=== PATIENT | female | born 1940 | race Caucasian/White ===

== ENCOUNTER 2017-10-03 06:50 | Outpatient (CLI) | payer OTHER ==
[~2017-10-03 06:50] MED LIST: CLEOCIN HCL300 MG PO; DOXAZOSIN MESYLA4 MG; KENALOG ORABASE TOP; LEVOXYL100 MCG; PANADOL MAXIMU500 MG PO; PENTOXIFYLLINE400 MG; ULTRAM50 MG PO; ZOCOR20 MG
== END 2017-10-03 06:56 | disposition home or self-care (01) ==
LOC: LAB 06:50
DX: K29.40 Chronic atrophic gastritis without bleeding (principal); D51.8 Other vitamin B12 deficiency anemias; E03.8 Other specified hypothyroidism; E11.65 Type 2 diabetes mellitus with hyperglycemia; I10 Essential (primary) hypertension; D51.0 Vitamin B12 deficiency anemia due to intrinsic factor deficiency; D51.1 Vitamin B12 deficiency anemia due to selective vitamin B12 malabsorption with proteinuria; E06.3 Autoimmune thyroiditis; D51.3 Other dietary vitamin B12 deficiency anemia; J45.998 Other asthma; C50.412 Malignant neoplasm of upper-outer quadrant of left female breast; Z85.3 Personal history of malignant neoplasm of breast; D50.8 Other iron deficiency anemias; R97.0 Elevated carcinoembryonic antigen [CEA]; R97.8 Other abnormal tumor markers

== ENCOUNTER 2018-01-09 06:29 | Outpatient (CLI) | payer OTHER | END 2018-01-09 06:30 | disposition home or self-care (01) | LOC: LAB 06:29 | DX: D51.0 Vitamin B12 deficiency anemia due to intrinsic factor deficiency (principal); D51.1 Vitamin B12 deficiency anemia due to selective vitamin B12 malabsorption with proteinuria; E06.3 Autoimmune thyroiditis; J45.998 Other asthma; E03.8 Other specified hypothyroidism; I10 Essential (primary) hypertension; E08.65 Diabetes mellitus due to underlying condition with hyperglycemia; C50.412 Malignant neoplasm of upper-outer quadrant of left female breast; Z85.3 Personal history of malignant neoplasm of breast; D50.8 Other iron deficiency anemias; K90.89 Other intestinal malabsorption; R97.0 Elevated carcinoembryonic antigen [CEA]; R97.8 Other abnormal tumor markers ==

== ENCOUNTER 2018-01-09 07:07 | Outpatient (CLI) | payer OTHER | END 2018-01-09 07:10 | disposition home or self-care (01) | LOC: SONOGRAMA 07:07 → MAMO-SONO 07:45 | DX: K29.40 Chronic atrophic gastritis without bleeding (principal); D51.0 Vitamin B12 deficiency anemia due to intrinsic factor deficiency; D51.1 Vitamin B12 deficiency anemia due to selective vitamin B12 malabsorption with proteinuria; E06.3 Autoimmune thyroiditis; D51.3 Other dietary vitamin B12 deficiency anemia; J45.998 Other asthma; E03.8 Other specified hypothyroidism; I10 Essential (primary) hypertension; E08.65 Diabetes mellitus due to underlying condition with hyperglycemia; C50.412 Malignant neoplasm of upper-outer quadrant of left female breast; Z85.3 Personal history of malignant neoplasm of breast ==

== ENCOUNTER 2018-02-13 08:18 | Outpatient (CLI) | payer OTHER | END 2018-02-13 08:32 | disposition home or self-care (01) | LOC: NUCLEAR 08:18 | DX: D51.0 Vitamin B12 deficiency anemia due to intrinsic factor deficiency (principal); D51.1 Vitamin B12 deficiency anemia due to selective vitamin B12 malabsorption with proteinuria; E06.3 Autoimmune thyroiditis; D51.3 Other dietary vitamin B12 deficiency anemia; J45.998 Other asthma; E03.8 Other specified hypothyroidism; E08.65 Diabetes mellitus due to underlying condition with hyperglycemia; C50.412 Malignant neoplasm of upper-outer quadrant of left female breast; Z85.3 Personal history of malignant neoplasm of breast; K29.40 Chronic atrophic gastritis without bleeding; R97.0 Elevated carcinoembryonic antigen [CEA] | CPT/HCPCS: 78816; A9552 ==

== ENCOUNTER → 2018-04-21 09:42 | Outpatient (CLI) | payer OTHER | END | disposition home or self-care (01) | LOC: LAB 04-20 18:21 | DX: E03.8 Other specified hypothyroidism (principal); M83.9 Adult osteomalacia, unspecified; E73.8 Other lactose intolerance; I10 Essential (primary) hypertension ==

== ENCOUNTER 2018-04-25 07:14 | Outpatient (CLI) | payer OTHER | END 2018-04-25 13:51 | disposition home or self-care (01) | LOC: LAB 07:14 | DX: E55.9 Vitamin D deficiency, unspecified (principal); E11.9 Type 2 diabetes mellitus without complications; N39.0 Urinary tract infection, site not specified; R82.79 Other abnormal findings on microbiological examination of urine ==

== ENCOUNTER 2018-08-10 06:35 | Outpatient (CLI) | payer OTHER | END 2018-08-10 15:00 | disposition home or self-care (01) | LOC: LAB 06:35 | DX: C50.412 Malignant neoplasm of upper-outer quadrant of left female breast (principal); R97.0 Elevated carcinoembryonic antigen [CEA]; D51.0 Vitamin B12 deficiency anemia due to intrinsic factor deficiency; E06.3 Autoimmune thyroiditis; D51.3 Other dietary vitamin B12 deficiency anemia; J45.998 Other asthma; E03.8 Other specified hypothyroidism; I10 Essential (primary) hypertension; E08.65 Diabetes mellitus due to underlying condition with hyperglycemia; Z85.3 Personal history of malignant neoplasm of breast; K29.40 Chronic atrophic gastritis without bleeding; D50.8 Other iron deficiency anemias; D51.8 Other vitamin B12 deficiency anemias; K90.89 Other intestinal malabsorption; R97.8 Other abnormal tumor markers ==

== ENCOUNTER → 2018-08-20 | Outpatient (CLI) | payer OTHER | END | disposition home or self-care (01) | LOC: NUCLEAR 13:57 | DX: M81.0 Age-related osteoporosis without current pathological fracture (principal) ==

== ENCOUNTER 2018-10-05 06:22 | Outpatient (CLI) | payer OTHER | END 2018-10-05 06:30 | disposition home or self-care (01) | LOC: LAB 06:22 | DX: I10 Essential (primary) hypertension (principal); E03.8 Other specified hypothyroidism; E78.2 Mixed hyperlipidemia; E73.8 Other lactose intolerance ==

== ENCOUNTER 2018-11-16 06:15 | Outpatient (CLI) | payer OTHER | END 2018-11-16 15:00 | disposition home or self-care (01) | LOC: LAB 06:15 | DX: C50.412 Malignant neoplasm of upper-outer quadrant of left female breast (principal); R97.0 Elevated carcinoembryonic antigen [CEA]; D51.0 Vitamin B12 deficiency anemia due to intrinsic factor deficiency; D51.1 Vitamin B12 deficiency anemia due to selective vitamin B12 malabsorption with proteinuria; E06.3 Autoimmune thyroiditis; D51.3 Other dietary vitamin B12 deficiency anemia; J45.998 Other asthma; E03.8 Other specified hypothyroidism; I10 Essential (primary) hypertension; E08.65 Diabetes mellitus due to underlying condition with hyperglycemia; Z85.3 Personal history of malignant neoplasm of breast; K29.40 Chronic atrophic gastritis without bleeding; D50.8 Other iron deficiency anemias; D51.8 Other vitamin B12 deficiency anemias; R97.8 Other abnormal tumor markers ==

== ENCOUNTER 2019-01-25 07:39 | Outpatient (CLI) | payer OTHER | END 2019-01-25 07:46 | disposition home or self-care (01) | LOC: NUCLEAR 07:39 | DX: C50.412 Malignant neoplasm of upper-outer quadrant of left female breast (principal); R97.0 Elevated carcinoembryonic antigen [CEA]; D51.0 Vitamin B12 deficiency anemia due to intrinsic factor deficiency; D51.1 Vitamin B12 deficiency anemia due to selective vitamin B12 malabsorption with proteinuria | CPT/HCPCS: 78816; A9552 ==

== ENCOUNTER 2019-02-10 06:40 | Emergency (ER) | payer OTHER ==
[~2019-02-10] VITALS: Ht 149.9 cm; Wt 72.6 kg
== END 2019-02-10 16:46 | disposition home or self-care (01) ==
LOC: ER 06:40
DX: J45.901 Unspecified asthma with (acute) exacerbation (principal)

== ENCOUNTER 2019-07-14 20:04 | Inpatient (IN) | payer OTHER ==
[~2019-07-14] VITALS: Ht 30.5 cm; Wt 4.0 kg
[2019-07-21] MEDS ORDERED: LORATADINE10 MG PO (13:28)
[2019-07-21] MEDS ORDERED: MUCINEX600 MG PO (13:29)
[2019-07-21] MEDS ORDERED: BENZONATATE200 M1 PO (13:29)
[2019-07-21] MEDS ORDERED: MEDROLPACK PO (13:30)
[2019-07-21] MEDS ORDERED: IPRAT-ALBUT 0.5-3 ML IH (13:30)
== END 2019-07-21 14:03 | disposition home or self-care (01) | DRG 190 ==
LOC: ER 20:04 → MEDJ 07-15 09:53
PROVIDERS: ADMIT Internal Medicine
PROC: BB24ZZZ Computerized Tomography (CT Scan) of Bilateral Lungs (ICD-10-PCS; principal; 2019-07-15)
PROC: 4A033R1 Measurement of Arterial Saturation, Peripheral, Percutaneous Approach (ICD-10-PCS; 2019-07-15)
PROC: 3E0F7GC Introduction of Other Therapeutic Substance into Respiratory Tract, Via Natural or Artificial Opening (ICD-10-PCS; 2019-07-16)
DX: J44.1 Chronic obstructive pulmonary disease with (acute) exacerbation (principal); J18.1 Lobar pneumonia, unspecified organism; J80 Acute respiratory distress syndrome; J45.41 Moderate persistent asthma with (acute) exacerbation; J98.11 Atelectasis; E03.8 Other specified hypothyroidism; E11.9 Type 2 diabetes mellitus without complications; I10 Essential (primary) hypertension; Z79.4 Long term (current) use of insulin

== ENCOUNTER → 2019-08-07 08:18 | Outpatient (CLI) | payer OTHER ==
[~2019-08-07 08:18] MED LIST changes: +BENZONATATE200 M1 PO; +IPRAT-ALBUT 0.5-3 ML IH; +LORATADINE10 MG PO; +MEDROLPACK PO; +MUCINEX600 MG PO
== END | disposition home or self-care (01) ==
LOC: LAB 08:18
DX: E78.2 Mixed hyperlipidemia (principal); E03.8 Other specified hypothyroidism; I10 Essential (primary) hypertension; E73.8 Other lactose intolerance; E11.9 Type 2 diabetes mellitus without complications

== ENCOUNTER → 2019-09-08 07:15 | Outpatient (CLI) | payer OTHER | END | disposition home or self-care (01) | LOC: LAB 07:15 | DX: D50.8 Other iron deficiency anemias (principal); C50.412 Malignant neoplasm of upper-outer quadrant of left female breast; D63.1 Anemia in chronic kidney disease; N18.3 Chronic kidney disease, stage 3 (moderate); R97.0 Elevated carcinoembryonic antigen [CEA]; D51.0 Vitamin B12 deficiency anemia due to intrinsic factor deficiency; D51.1 Vitamin B12 deficiency anemia due to selective vitamin B12 malabsorption with proteinuria; E06.3 Autoimmune thyroiditis; D51.3 Other dietary vitamin B12 deficiency anemia; J45.998 Other asthma; E03.8 Other specified hypothyroidism; E08.65 Diabetes mellitus due to underlying condition with hyperglycemia; Z85.3 Personal history of malignant neoplasm of breast; K29.40 Chronic atrophic gastritis without bleeding; D51.8 Other vitamin B12 deficiency anemias; E55.9 Vitamin D deficiency, unspecified ==

== ENCOUNTER → 2019-09-09 07:05 | Outpatient (CLI) | payer OTHER | END | disposition home or self-care (01) | LOC: LAB 07:05 | DX: D50.8 Other iron deficiency anemias (principal); C50.412 Malignant neoplasm of upper-outer quadrant of left female breast; D63.1 Anemia in chronic kidney disease; N18.3 Chronic kidney disease, stage 3 (moderate); R97.0 Elevated carcinoembryonic antigen [CEA]; D51.0 Vitamin B12 deficiency anemia due to intrinsic factor deficiency; D51.1 Vitamin B12 deficiency anemia due to selective vitamin B12 malabsorption with proteinuria; J45.998 Other asthma; E03.8 Other specified hypothyroidism; E08.65 Diabetes mellitus due to underlying condition with hyperglycemia; Z85.3 Personal history of malignant neoplasm of breast; K29.40 Chronic atrophic gastritis without bleeding; D51.8 Other vitamin B12 deficiency anemias; E55.9 Vitamin D deficiency, unspecified; K90.89 Other intestinal malabsorption; R19.5 Other fecal abnormalities; R97.8 Other abnormal tumor markers ==

== ENCOUNTER 2020-09-08 06:31 | Outpatient (CLI) | payer OTHER | END 2020-09-08 06:39 | disposition home or self-care (01) | LOC: LAB 06:31 | PROVIDERS: ATTEND Internal Medicine Endocrinology, Diabetes & Metabolism | DX: E03.8 Other specified hypothyroidism (principal); E73.8 Other lactose intolerance; E78.2 Mixed hyperlipidemia; I10 Essential (primary) hypertension; M83.8 Other adult osteomalacia ==

== ENCOUNTER 2020-12-06 11:53 | Outpatient (CLI) | payer OTHER | END 2020-12-06 12:07 | disposition home or self-care (01) | LOC: NUCLEAR 11:53 | PROVIDERS: ATTEND General Practice | DX: M81.0 Age-related osteoporosis without current pathological fracture (principal) ==

== ENCOUNTER 2021-04-21 08:52 | Emergency (ER) | payer OTHER ==
[~2021-04-21] VITALS: Ht 149.9 cm; Wt 90.3 kg
[2021-04-21] MEDS ORDERED: NEURONTIN300 MG (09:03)
[2021-04-21] MEDS ORDERED: SYNTHROID112 MCG (09:04)
[2021-04-21] MEDS ORDERED: SINGULAIR 10MG10 MG (09:04)
[2021-04-21] MEDS ORDERED: MYSOLINE250 MG (09:04)
[2021-04-21] MEDS ORDERED: CARDURA XL4 MG (09:04)
[2021-04-21] MEDS ORDERED: ZESTRIL5 MG (09:04)
[2021-04-21] MEDS ORDERED: SIMVASTATIN40 MG (09:04)
[2021-04-21] MEDS ORDERED: PENTOXIFYLLINE400 MG (09:05)
[2021-04-21] MEDS ORDERED: SURFAK240 M1 PO (14:44)
== END 2021-04-21 14:55 | disposition home or self-care (01) ==
LOC: ER 08:52
DX: K62.5 Hemorrhage of anus and rectum (principal)

== ENCOUNTER 2021-05-29 15:20 | Outpatient (CLI) | payer OTHER ==
[~2021-05-29 15:20] MED LIST changes: +CARDURA XL4 MG; +MYSOLINE250 MG; +NEURONTIN300 MG; +SIMVASTATIN40 MG; +SINGULAIR 10MG10 MG; +SURFAK240 M1 PO; +SYNTHROID112 MCG; +ZESTRIL5 MG
== END 2021-05-29 15:45 | disposition home or self-care (01) ==
LOC: PPH VACUNA 15:20
PROVIDERS: ATTEND Emergency Medicine Pediatric Emergency Medicine
DX: Z23 Encounter for immunization (principal)

== ENCOUNTER 2021-06-22 08:30 | Outpatient (CLI) | payer OTHER | END 2021-06-22 08:37 | disposition home or self-care (01) | LOC: TOM 08:30 | PROVIDERS: ATTEND General Practice | DX: K57.10 Diverticulosis of small intestine without perforation or abscess without bleeding (principal); K59.09 Other constipation ==

== ENCOUNTER 2021-09-03 06:21 | Outpatient (CLI) | payer OTHER | END 2021-09-03 06:22 | disposition home or self-care (01) | LOC: LAB 06:21 | PROVIDERS: ATTEND Internal Medicine Gastroenterology | DX: K57.21 Diverticulitis of large intestine with perforation and abscess with bleeding (principal); K57.30 Diverticulosis of large intestine without perforation or abscess without bleeding; K29.40 Chronic atrophic gastritis without bleeding ==

== ENCOUNTER → 2022-01-22 | Emergency (ER) | payer OTHER ==
[~2022-01-22] VITALS: Ht 149.9 cm; Wt 81.2 kg
== END | disposition home or self-care (01) ==
LOC: ER 09:35
DX: Z48.02 Encounter for removal of sutures (principal)

== ENCOUNTER 2022-01-24 11:29 | Emergency (ER) | payer OTHER ==
[~2022-01-24] VITALS: Ht 124.5 cm; Wt 82.6 kg
== END 2022-01-24 14:53 | disposition home or self-care (01) ==
LOC: ER 11:29
DX: S09.90XA Unspecified injury of head, initial encounter (principal); W01.0XXA Fall on same level from slipping, tripping and stumbling without subsequent striking against object, initial encounter; Z91.81 History of falling; Y93.B9 Activity, other involving muscle strengthening exercises; Y92.39 Other specified sports and athletic area as the place of occurrence of the external cause; J45.909 Unspecified asthma, uncomplicated; E03.9 Hypothyroidism, unspecified; I10 Essential (primary) hypertension; Z88.0 Allergy status to penicillin; Z88.6 Allergy status to analgesic agent

== ENCOUNTER 2022-02-12 05:08 | Inpatient (IN) | payer OTHER ==
[~2022-02-12] VITALS: Ht 149.9 cm; Wt 85.7 kg
[~2022-02-12 05:08] MED LIST changes: +CLINDAMYCIN HC300 MG PO; +INTESTINEX680 M1 PO
[2022-02-13] MEDS ORDERED: CYANOCOBAL1000 MCG/1 (14:00)
[2022-02-13] MEDS ORDERED: RISEDRONATE SO150 MG (14:01)
== END 2022-02-19 15:37 | disposition home or self-care (01) | DRG 392 ==
LOC: ER 05:08 → MEDI 21:01
PROVIDERS: ADMIT Internal Medicine; ATTEND Internal Medicine
PROC: 0DBN8ZX Excision of Sigmoid Colon, Via Natural or Artificial Opening Endoscopic, Diagnostic (ICD-10-PCS; principal; 2022-02-12)
PROC: 4A12X4Z Monitoring of Cardiac Electrical Activity, External Approach (ICD-10-PCS; 2022-02-12)
PROC: 02HV33Z Insertion of Infusion Device into Superior Vena Cava, Percutaneous Approach (ICD-10-PCS; 2022-02-15)
PROC: BW21YZZ Computerized Tomography (CT Scan) of Abdomen and Pelvis using Other Contrast (ICD-10-PCS; 2022-02-17)
PROC: B24BZZZ Ultrasonography of Heart with Aorta (ICD-10-PCS; 2022-02-17)
DX: K52.89 Other specified noninfective gastroenteritis and colitis (principal); K62.5 Hemorrhage of anus and rectum; J44.1 Chronic obstructive pulmonary disease with (acute) exacerbation; J45.21 Mild intermittent asthma with (acute) exacerbation; A04.72 Enterocolitis due to Clostridium difficile, not specified as recurrent; K57.30 Diverticulosis of large intestine without perforation or abscess without bleeding; I10 Essential (primary) hypertension; E11.9 Type 2 diabetes mellitus without complications; E03.9 Hypothyroidism, unspecified; Z20.822 Contact with and (suspected) exposure to COVID-19; Z79.4 Long term (current) use of insulin

== ENCOUNTER 2022-03-19 07:39 | Emergency (ER) | payer OTHER ==
[~2022-03-19] VITALS: Ht 149.9 cm; Wt 84.4 kg
[~2022-03-19 07:39] MED LIST changes: +CYANOCOBAL1000 MCG/1; +RISEDRONATE SO150 MG
[2022-03-19] MEDS ORDERED: PEPCID AC20 MG PO (07:57)
[2022-03-19] MEDS ORDERED: MELATONIN1 MG PO (07:58)
== END 2022-03-19 16:29 | disposition left against medical advice (07) ==
LOC: ER 07:39
DX: K52.9 Noninfective gastroenteritis and colitis, unspecified (principal); J44.9 Chronic obstructive pulmonary disease, unspecified; E11.9 Type 2 diabetes mellitus without complications; E07.9 Disorder of thyroid, unspecified

== ENCOUNTER 2023-06-17 12:49 | Emergency (ER) | payer OTHER ==
[~2023-06-17] VITALS: Ht 144.8 cm; Wt 68.0 kg
[~2023-06-17 12:49] MED LIST changes: +MELATONIN1 MG PO; +PEPCID AC20 MG PO
[2023-06-17 17:07] LABS: HEMATOCRIT 29.4 % (36.0-45.00); HEMOGLOBIN 9.8 g/dL (12.0-15.00); MEAN CELL VOLUME 94.4 fL (80.00-100.00); MEAN CORPUSCULAR HEMOGLOBIN 31.5 pg (27.00-32.0); MEAN CORPUSCULAR HGB CONC 33.3 g/dl (32.0-36.0); PLATELET COUNT 337 K/uL (150-450); RED BLOOD COUNT 3.11 M/uL (4.00-6.00); RED CELL DISTRIBUTION WIDTH 16.3 % (11.5-14.5)
[2023-06-17] MEDS ORDERED: LEVOFLOXACIN500 MG PO (19:13)
[2023-06-17] MEDS ORDERED: BUDESONIDE0.5 MG/21 IH (19:13)
[2023-06-17] MEDS ORDERED: IPRAT-ALBUT 0.5-3 ML IH (19:13)
[2023-06-17 20:52] LABS: ABG PH 7.404 (7.35-7.45); ABG PO2 84.3 mmHg (80-100); ABG pCO2 45.1 mmHg (35-45)
[2023-06-17 20:53] LABS: BASE EXCESS 2.2 mmol/l
[2023-06-17 20:55] LABS: BICARBONATE 27.5 mmol/l (23-25); Tco2 28.9 mmol/l
[2023-06-17 20:56] LABS: allen test SATISFACTORY; o2 21 %; puncture site RADIAL RIGHT
[2023-06-17 20:57] LABS: SaO2 96.4 %
== END 2023-06-17 19:36 ==
LOC: ER 12:49
PROVIDERS: Nurse Practitioner Family
DX: R53.81 Other malaise (principal); J06.9 Acute upper respiratory infection, unspecified; J45.909 Unspecified asthma, uncomplicated; I10 Essential (primary) hypertension; E03.8 Other specified hypothyroidism; E11.9 Type 2 diabetes mellitus without complications; Z20.822 Contact with and (suspected) exposure to COVID-19; Z88.0 Allergy status to penicillin; Z88.6 Allergy status to analgesic agent
CPT/HCPCS: 36415; 71046; 82803; 96365; 99283; J1956

== ENCOUNTER 2023-07-16 10:09 | Emergency (ER) | payer OTHER ==
[~2023-07-16] VITALS: Ht 152.4 cm; Wt 59.0 kg
[~2023-07-16 10:09] MED LIST changes: +BUDESONIDE0.5 MG/21 IH; +LEVOFLOXACIN500 MG PO
[2023-07-16] MEDS ORDERED: METFORMIN HCL500 M4 PO (10:29)
[2023-07-16] MEDS ORDERED: LISINOPRIL2.5 MG PO (10:29)
[2023-07-16] MEDS ORDERED: LOPRESSOR25 MG PO (10:29)
[2023-07-16] MEDS ORDERED: GABAPENTIN300 M2 PO (10:29)
[2023-07-16] MEDS ORDERED: ATORVASTATIN CA40 MG PO (10:30)
[2023-07-16] MEDS ORDERED: FUROSEMIDE20 MG PO (10:30)
[2023-07-16] MEDS ORDERED: PLAVIX75 MG PO (10:30)
[2023-07-16] MEDS ORDERED: MELATONIN10 MG PO (10:31)
[2023-07-16] MEDS ORDERED: SYNTHROID137 MCG PO (10:31)
[2023-07-16 13:16] LABS: HEMATOCRIT 32.2 % (36.0-45.00); HEMOGLOBIN 10.9 g/dL (12.0-15.00); MEAN CELL VOLUME 95.5 fL (80.00-100.00); MEAN CORPUSCULAR HEMOGLOBIN 32.2 pg (27.00-32.0); MEAN CORPUSCULAR HGB CONC 33.7 g/dl (32.0-36.0); PLATELET COUNT 249 K/uL (150-450); RED BLOOD COUNT 3.38 M/uL (4.00-6.00)
[2023-07-16 13:32] LABS: CREATININE SERUM 1.01 mg/dL (0.55-1.02); GFR 52.35; POTASSIUM 4.13 mEq/L (3.5-5.1)
== END 2023-07-16 18:59 | disposition home or self-care (01) ==
LOC: ER 10:09
PROVIDERS: General Practice
DX: S09.8XXA Other specified injuries of head, initial encounter (principal); M19.90 Unspecified osteoarthritis, unspecified site; Z88.0 Allergy status to penicillin; Z88.2 Allergy status to sulfonamides
CPT/HCPCS: 36415; 96365; 99284; J1100

== ENCOUNTER 2023-12-31 07:09 | Outpatient (CLI) | payer OTHER ==
[~2023-12-31 07:09] MED LIST changes: +ATORVASTATIN CA40 MG PO; +FUROSEMIDE20 MG PO; +GABAPENTIN300 M2 PO; +LISINOPRIL2.5 MG PO; +LOPRESSOR25 MG PO; +MELATONIN10 MG PO; +METFORMIN HCL500 M4 PO; +PLAVIX75 MG PO; +SYNTHROID137 MCG PO
== END 2023-12-31 07:15 | disposition home or self-care (01) ==
LOC: TOM 07:09
DX: N20.0 Calculus of kidney (principal); G25.0 Essential tremor

== ENCOUNTER 2024-03-10 13:55 | Outpatient (CLI) | payer OTHER | END 2024-03-10 14:08 | disposition home or self-care (01) | LOC: RAD 13:55 | DX: S34.109A Unspecified injury to unspecified level of lumbar spinal cord, initial encounter (principal); S79.919A Unspecified injury of unspecified hip, initial encounter; S72.90XA Unspecified fracture of unspecified femur, initial encounter for closed fracture ==